=== PATIENT | female | born 1990 | race Caucasian/White ===

== ENCOUNTER 2018-11-23 20:51 | Inpatient (IN) | payer BC ==
[2018-11-23] MEDS ORDERED: CARBOPROST TROMETHAMINE 250 MCG/ML 1 ML AMP IM PRN (21:05)
[2018-11-23] MEDS ORDERED: OXYTOCIN 10 UNIT/ML 1 ML VIAL IM PRN (21:05)
[2018-11-23] MEDS ORDERED: LIDOCAINE 0.5% (PF) 5 MG/ML (50 ML SDV) SQ PRN (21:05)
[2018-11-23] MEDS ORDERED: METHYLERGONOVINE 0.2 MG/ML 1 ML AMP IM PRN (21:05)
[2018-11-23] MEDS ORDERED: TERBUTALINE 1 MG/ML VIAL SQ PRN (21:05)
[2018-11-23] MEDS ORDERED: OXYTOCIN 30 UNITS/500 ML NS 30 UNIT in SALINE 1 500ML.BAG IV SCH (21:15)
[2018-11-23 21:19] VITALS: BMI 51.3
[2018-11-23 21:22] LABS: Glucose,Whole Blood 91 mg/dL (75-99)
[2018-11-23 21:31] LABS: Basophils % (A) 0 %; Eosinophils # (A) 0.1 k/uL (0-0.7); Eosinophils % (A) 1 %; HCT 36.4 % (34.0-46.0); HGB 12.5 gm/dL (11.4-16.0); Lymphocytes # (A) 1.8 k/uL (1.0-4.8); Lymphocytes % (A) 19 %; MCH 29.9 pg (25.0-35.0); MCHC 34.3 g/dL (31.0-37.0); MCV 87.1 fL (80.0-100.0); Mean Platelet Volume 7.9; Monocytes # (A) 0.7 k/uL (0-1.0); Monocytes % (A) 8 %; Neutrophils # (A) 6.6 k/uL (1.3-7.7); Neutrophils % (A) 70 %; Platelet Count 280 k/uL (150-450); RBC 4.17 m/uL (3.80-5.40); RDW 15.6 % (11.5-15.5); WBC 9.5 k/uL (3.8-10.6)
[2018-11-24] MEDS: LACTATED RINGERS 1,000 ML IV SCH ×4 (00:43→12:00)
[2018-11-24] MEDS: BUTORPHANOL 1 MG/ML 1 ML VIAL IV PRN ×2 (04:23→06:34)
[2018-11-24] MEDS ORDERED: SODIUM CHLORIDE 0.9% 100 ML BAG ONE (08:01)
[2018-11-24] MEDS ORDERED: fentaNYL (PF) 50 MCG/ML 5 ML AMP ONE (08:01)
[2018-11-24] MEDS ORDERED: ROPIVACAINE 5MG/ML 20ML VIAL ONE (08:01)
[2018-11-24] MEDS ORDERED: ROPIVACAINE 100 MG, fentaNYL (PF) 200 MCG in SODIUM CHLORIDE 0.9% 76 ML EPIDURAL ONE (09:50)
[2018-11-24] MEDS ORDERED: AMPICILLIN 2,000 MG in SODIUM CHLORIDE 0.9% 100 ML IVPB STA (12:29)
--- NOTE | 2018-11-24 12:41 | P.HPOB ---
History of Present Illness H&P Date: 11/24/18 Chief Complaint: IUP @ 39 1/7 weeks, PROM This is a 28-year-old 010 at 39 and one sevenths weeks with an estimated due date of 11/29/2017 based on last menstrual period and consistent with 20 week ultrasound. Patient is a known patient of Dr. Love. Patient has been re ceiving routine care since the first trimester. She doesn't a history of migraine headaches for which she sees Dr. Rawls. In addition she has been diagnosed with gestational diabetes which has been diet controlled. Estimated weight on Sunday of last week was 91st percentile 8 lbs. 4 oz. She has had recently good control throughout the of her blood sugars. Patient states her water broke about 8 PM last evening, clear in nature. Patient noted good movement she denied contractions at that time no vaginal bleeding. On blood work she has a blood type of O+, rubella immune, RPR nonreactive, B surface antigen negative, HIV negative. She did pass her early 1 hour Glucola. She failed her second trimester gestational diabetes screen at the level of 183 and subsequently failed her 3 hour. She did receive her T Vaccine on 08/27/18. Group beta strep negative on 10/28/18. Review of Systems Constitutional: Denies chills, Denies fatigue, Denies fever Ears, nose, mouth and throat: Denies headache Cardiovascular: Reports leg edema Respiratory: Denies cough, Denies dyspnea Gastrointestinal: Denies constipation, Denies diarrhea, Denies nausea, Denies vomiting Genitourinary: Reports Past Medical History Past Medical History: No Reported History Additional Past Medical History / Comment(s): gestational diabetes 09/2018, migraine [place] History of Any Multi-Drug Resistant Organisms: None Reported Past Surgical History: Cholecystectomy Past Anesthesia/Blood Transfusion Reactions: No Reported Reaction Past Psychological History: No Psychological Hx Reported Smoking Status: Never smoker Past Alcohol Use History: None Reported Past Drug Use History: None Reported - Past Family History Mother Family Medical History: Diabetes Mellitus Father Family Medical History: Hyperlipidemia, Hypertension Medications and Allergies Home Medications Medication Instructions Recorded Confirmed Type Pnv No.95/Ferrous Fum/Folic AC 1 tab PO DAILY 09/24/18 11/23/18 History [ Multivitamin Tablet] Allergies Allergy/AdvReac Type Severity Reaction Status Date / Time acetaminophen [From Tylenol] AdvReac Unknown Verified 11/23/18 20:54 Exam Osteopathic Statement: *. No significant issues noted on an osteopathic structural exam other than those noted in the History and Physical/Consult. Vital Signs Temp Pulse Resp BP Pulse Ox 11/23/18 21:14 97.3 F L 108 H 16 112/67 97 11/23/18 20:55 97.5 F L 111 H 16 112/67 97 Intake and Output 11/23/18 11/24/18 11/24/18 22:59 06:59 14:59 Other: # Voids 2 2 Weight 131.587 kg Targeted physical exam is performed on this date in general this is a well- nourished well-developed obese female in no acute distress, her breathing is noted to nonlabored her heart has a regular rate and rhythm her abdomen is obese and gravid, there is +1 lower extremity edema noted, heart tones are noted to be category 1 she is yulissa irregularly contractions not graphing well given maternal size. On cervical exam she is 4/100/-2. Results Result Diagrams: 11/23/18 21:23 Abnormal Lab Results - Last 24 Hours (Table) 11/23/18 Range/Units 21:23 RDW 15.6 H (11.5-15.5) % Assessment and Plan (1) Term Current Visit: Yes Status: Acute Code(s): Z34.90 - ENCNTR FOR SUPRVSN OF NORMAL , UNSP, UNSP TRIMESTER SNOMED Code(s): 87675015 (2) GDM (gestational diabetes mellitus), class A1 Current Visit: Yes Status: Acute Code(s): O24.410 - GESTATIONAL DIABETES MELLITUS IN , DIET CONTROLLED SNOMED Code(s): 57513818 (3) Obesity Current Visit: Yes Status: Acute Code(s): E66.9 - OBESITY, UNSPECIFIED SNOMED Code(s): 140952011 (4) PROM (premature rupture of membranes) Current Visit: Yes Status: Acute Code(s): O42.90 - YOLIS ROM, 7TH0 BETW RUPT & ONST LABR, UNSP WEEKS OF GEST SNOMED Code(s): 95226046 Plan: Patient is admitted to labor and delivery for expectant management. Pitocin augmentation if she does not go into labor on her own was discussed. Epidu ral/Stadol are offered for analgesia throughout labor.
[2018-11-24] MEDS ORDERED: ceFAZolin 3 GM in SODIUM CHLORIDE 0.9% 100 ML IVPB ONE (13:52)
[2018-11-24] MEDS ORDERED: CITRIC ACID-SODIUM CITRATE 15 ML CUP PO ONE (13:52)
[2018-11-24] MEDS ORDERED: DEXAMETHASONE SOD PHOS (MDV) 100 MG/10 ML VIAL ONE (14:13)
[2018-11-24] MEDS ORDERED: LACTATED RINGERS 1,000 ML BAG IV ONE (14:13)
[2018-11-24] MEDS ORDERED: OXYTOCIN 10 UNIT/ML 1 ML VIAL ONE (14:13)
[2018-11-24] MEDS ORDERED: MORPHINE SULFATE (PF) 0.3 MG/0.3 ML SYR ONE (14:13)
[2018-11-24] MEDS ORDERED: ONDANSETRON 4 MG/2 ML VIAL ONE (14:13)
[2018-11-24] MEDS ORDERED: KETOROLAC 30 MG/ML 1 ML VIAL ONE (14:13)
[2018-11-24] MEDS ORDERED: fentaNYL (PF) 50 MCG/ML 2 ML AMP ONE (14:13)
--- NOTE | 2018-11-24 15:05 | P.OP ---
Date of Procedure: 11/24/18 Preoperative Diagnosis: IUP at 39 and 1/sevenths weeks premature rupture of membranes, arrest of first stage of labor Postoperative Diagnosis: Same Procedure(s) Performed: Primary low transverse section Anesthesia: epidural Surgeon: Nadine Gates Java Consultant #1: Joesph Bahena Estimated Blood Loss (ml): 500 IV fluids (ml): 700 Urine output (ml): 100 Pathology: none sent Condition: stable Disposition: PACU Indications for Procedure: This is a 28-year-old 2 para 0010 at 39 and one sevenths weeks that presented to labor and delivery last evening with complaints of rupture of membranes at 1930. Patient states the fluid was clear in nature. Patient was admitted to labor and delivery Pitocin augmentation of labor was begun around midnight this morning. Patient progressed to 4 cm and made no change afterwards. Patient was counseled on primary low transverse section secondary to arrest of first stage of labor patient agreed and was taken back to the operating suite for primary Operative Findings: Male infant in vertex presentation, weight 8 lbs. 6 oz. Apgars of 8 and 9 at one and 5 minutes respectively Normal uterus tubes and ovaries were appreciated. Description of Procedure: Patient was taken back to the operating suite where epidural anesthesia was found be adequate. She was prepped and draped in normal sterile fashion in the dorsal supine position. A Rosas catheter had been placed under sterile technique in the labor room. A Pfannenstiel skin incision was made with a scalpel and carried through the underlying layer of fascia. The fascia was then incised in the midline and the incision was extended laterally with the Jacobson scissors. The superior aspect of the fascial incision was then grasped Alberto clamps, elevated and underlying rectus muscles dissected off sharply. Attention was then turned the inferior aspect of the fascial incision which was grasped with Alberto clamps, elevated and underlying rectus muscles dissected off sharply once again. The peritoneum was identified and entered. The Adina abdominal retractor was then placed into the abdomen. The vesicouterine peritoneum was identified and the bladder flap was created using sharp and blunt dissection. The hysterotomy incision was then made clear fluid was obtained infant was delivered in an occiput transverse presentation without difficulty the cord was doubly clamped and cut and handed off to awaiting RN. Cord blood was then taken and the placenta was removed manually. The placenta was noted to be intact with a three-vessel cord. The uterus was then removed from the abdomen and cleared of all clots and debris. The hysterotomy incision was closed 0 Vicryl in a running locked fashion a second suture was used to obtain hemostasis. The uterus was then returned to the abdomen and hysterotomy site was inspected and hemostasis was appreciated. The retractor was removed without difficulty. At this time the fascia was closed with 0 Vicryl in a running locked fashion from one lateral edge the midline and the other lateral edge to the midline. The subcutaneous tissue was then irrigated hemostasis was appreciated in the subcu tissue was closed with 3-0 Vicryl in a running fashion. The skin was then closed with 4-0 Vicryl in a subcuticular fashion. Steri-Strips and sterile dressings were applied as needed. All counts are correct 2 patient tolerated procedure well and was taken to her room in stable condition.
[2018-11-24] MEDS ORDERED: OXYTOCIN 20 UNITS/1000 ML NS 1,000 ML IV SCH (15:17)
[2018-11-24] MEDS ORDERED: ONDANSETRON 4 MG/2 ML VIAL IVP PRN (15:17)
[2018-11-24] MEDS ORDERED: diphenhydrAMINE 25 MG CAP PO PRN (15:17)
[2018-11-24] MEDS ORDERED: LACTATED RINGERS 1,000 ML IV SCH (15:17)
[2018-11-24] MEDS ORDERED: diphenhydrAMINE 50 MG/ML 1 ML VIAL IVP PRN ×2 (15:17)
[2018-11-24] MEDS ORDERED: METOCLOPRAMIDE 5 MG/ML 2 ML VIAL IVP PRN (15:17)
[2018-11-24] MEDS ORDERED: diphenhydrAMINE 50 MG CAP PO PRN (15:17)
[2018-11-24] MEDS ORDERED: ZOLPIDEM 5 MG TAB PO PRN (15:17)
[2018-11-24] MEDS ORDERED: NALOXONE 0.4 MG/ML 1 ML VIAL IV PRN (15:17)
[2018-11-24] MEDS: IBUPROFEN IV 800 MG in SODIUM CHLORIDE 0.9% 250 ML IV SCH ×2 (16:28→22:56)
[2018-11-24] MEDS ORDERED: AMPICILLIN 1,000 MG in SODIUM CHLORIDE 0.9% 50 ML IVPB SCH (16:30)
[2018-11-25] MEDS: IBUPROFEN IV 800 MG in SODIUM CHLORIDE 0.9% 250 ML IV SCH ×2 (04:33→10:23)
[2018-11-25] MEDS: LACTATED RINGERS 1,000 ML IV SCH (04:34)
[2018-11-25 06:36] LABS: Basophils % (A) 0 %; Eosinophils % (A) 0 %; HCT 29.9 % (34.0-46.0); Lymphocytes % (A) 17 %; MCH 29.6 pg (25.0-35.0); MCHC 33.5 g/dL (31.0-37.0); MCV 88.5 fL (80.0-100.0); Mean Platelet Volume 9.4; Monocytes # (A) 0.8 k/uL (0-1.0); Monocytes % (A) 6 %; Neutrophils % (A) 75 %; Platelet Count 205 k/uL (150-450); RBC 3.37 m/uL (3.80-5.40); RDW 14.6 % (11.5-15.5)
[2018-11-25] MEDS ORDERED: PRENATAL VIT-IRON-FOLIC ACID 1 EACH CAP PO SCH (09:00)
--- NOTE | 2018-11-25 14:41 | P.PNOBGPC ---
Subjective - Subjective Principal diagnosis: POD 1 LTCS arrest of first stage of labor Interval history: Patient has done well overnight. She is ambulating and voiding without difficulty. She is using ibuprofen for discomfort. She does has a sensitivity to Tylenol. Patient is breast-feeding without difficulty. She is tolerating a regular diet without nausea or vomiting. She states her lochia is minimal. Patient reports: Reports appetite normal, Reports voiding normally, Reports pain well controlled, Reports ambulating normally Brothers: doing well, nursing well Objective - Vital Signs Latest vital signs: Vital Signs Temp Pulse Resp BP Pulse Ox 11/25/18 12:00 98.1 F 92 16 99/55 96 11/25/18 07:34 98.4 F 92 16 114/46 97 11/25/18 03:59 98.3 F 92 16 116/59 99 11/24/18 23:33 98.5 F 74 16 116/56 11/24/18 20:00 98.2 F 68 16 99/59 11/24/18 17:04 97.7 F 87 16 111/69 96 11/24/18 16:34 122 H 16 114/58 95 11/24/18 16:04 83 16 107/56 96 11/24/18 15:49 90 16 106/56 95 11/24/18 15:34 89 16 112/53 96 11/24/18 15:19 112 H 16 121/60 96 11/24/18 15:04 98.5 F 100 16 129/64 96 Intake and Output 11/24/18 11/25/18 11/25/18 22:59 06:59 14:59 Intake Total 550 Output Total 1125 1000 900 Balance -1125 -450 -900 Intake: Oral 550 Output: Urine 1125 1000 900 Uretheral (Rosas) 275 Other: # Voids 1 - Exam Extremities: Present: edema Abdomen: Present: normal appearance, soft Incision: Present: normal, dry, intact Uterus: Present: normal, firm - Labs Labs: Abnormal Lab Results - Last 24 Hours (Table) 11/25/18 Range/Units 06:24 WBC 12.0 H (3.8-10.6) k/uL RBC 3.37 L (3.80-5.40) m/uL Hgb 10.0 L D (11.4-16.0) gm/dL Hct 29.9 L (34.0-46.0) % Neutrophils # 9.0 H (1.3-7.7) k/uL Assessment and Plan (1) Term Current Visit: Yes Status: Acute Code(s): Z34.90 - ENCNTR FOR SUPRVSN OF NORMAL , UNSP, UNSP TRIMESTER SNOMED Code(s): 23084892 (2) GDM (gestational diabetes mellitus), class A1 Current Visit: Yes Status: Acute Code(s): O24.410 - GESTATIONAL DIABETES MELLITUS IN , DIET CONTROLLED SNOMED Code(s): 09801255 (3) Obesity Current Visit: Yes Status: Acute Code(s): E66.9 - OBESITY, UNSPECIFIED SNOMED Code(s): 980970357 (4) PROM (premature rupture of membranes) Current Visit: Yes Status: Acute Code(s): O42.90 - YOLIS ROM, 7TH0 BETW RUPT & ONST LABR, UNSP WEEKS OF GEST SNOMED Code(s): 16002026 (5) S/P section Current Visit: Yes Status: Acute Code(s): Z98.891 - HISTORY OF UTERINE SCAR FROM PREVIOUS SURGERY SNOMED Code(s): 976455680 Plan: Patient is doing well postoperatively, will plan to continue routine postoperative care. Anticipate discharge home tomorrow.
[2018-11-25] MEDS: IBUPROFEN 600 MG TAB PO PRN ×2 (16:22→23:18)
[2018-11-25] MEDS: HYDROcodone/APAP 5-325MG 1 EACH TAB PO PRN (19:45)
[2018-11-25] MEDS: SENNOSIDES-DOCUSATE SODIUM 1 EACH TAB PO SCH (19:46)
[2018-11-26] VITALS: RESP 16
[2018-11-26] MEDS: HYDROcodone/APAP 5-325MG 1 EACH TAB PO PRN ×2 (02:56→09:15)
[2018-11-26] MEDS: IBUPROFEN 600 MG TAB PO PRN ×2 (06:21→13:36)
--- NOTE | 2018-11-26 07:26 | P.DS ---
Providers Date of admission: 11/23/18 21:06 Expected date of discharge: 11/26/18 Attending physician: Maribel Love Primary care physician: Stated None Hospital Course: This is a 28-year-old 2 para 0010 EDC 11/29/2018 at 39 and one sevenths weeks' gestation. Patient presented with spontaneous amniorrhexis which occurred at home, clear fluid. Oxytocin augmentation was started, and she progressed through labor to 4 cm dilatation. No further dilatation or descent was noted, and the decision was made to proceed with primary low transverse section. Patient's is remarkable for blood type O positive, rubella status immune, group B strep cultures negative. She has gestational diabetes that has been diet controlled. She also has morbid obesity. Please see dictated history and physical for details. She underwent a low-transverse section and gave to a liveborn male with scores of 8 and 9 at one and 5 minutes respectively. He weighed 3810 g or 8 lbs. 6 oz. Surgery was basically unremarkable, please see dictated operative note for details. This morning the patient is doing well. She is voiding, ambulating, passing flatus without difficulty. Vital signs are stable and she is afebrile. Fundus is firm and in the midline, symmetric, 18 week size, nontender. Lochia rubra is minimal to moderate. Extremities reveal trace edema. She has remained afebrile and feels as if she is ready to be discharged home. She is in good condition for discharge home. Circumcision has been performed at this time. Patient is reminded no intercourse, tampons or douching. She will use ove g-sli-[id number] Advil, Motrin, or Aleve as needed for pain. We will check a 2 hour GTT at the 6 week visit. She will follow-up with me in 2 weeks for incision check. I reviewed with her proper incisional care. I also reminded her that this would be an excellent time for weight loss, as it will keep her healthy are as life progresses. [place] circumcision is being performed at this time. Call with any fevers shakes or chills, foul smelling or copious lochia, with the passage of large blood clots, with any pain not alleviated by rrva-[id number]-[id number] products, or indeed with any concerns. I reminded her to consider her options for contraception and we will discuss this further in the office. Patient Condition at Discharge: Good Plan - Discharge Summary Discharge Rx Participant: No New Discharge Prescriptions: No Action Pnv No.95/Ferrous Fum/Folic AC [ Multivitamin Tablet] 1 tab PO DAILY Discharge Medication List Pnv No.95/Ferrous Fum/Folic AC [ Multivitamin Tablet] 1 tab PO DAILY 09/24/18 [History] Follow up Appointment(s)/Referral(s): Maribel Love MD [STAFF PHYSICIAN] - 2 Weeks Discharge Disposition: HOME SELF-CARE
[2018-11-26] MEDS: SENNOSIDES-DOCUSATE SODIUM 1 EACH TAB PO SCH (09:15)
[2018-11-26 10:09] LABS: Hemoglobin A1C 5.6 % (4.0-6.0)
[2018-11-26 15:50] VITALS: BP 108/67; PULSE 79; TEMP 98.9
== END 2018-11-26 18:00 | disposition home or self-care (01) | DRG 787 ==
LOC: FBPOP 20:51 → 4FBP 21:06
PROVIDERS: ADMIT Obstetrics & Gynecology Obstetrics; ATTEND Obstetrics & Gynecology
PROC: 00HU33Z Insertion of Infusion Device into Spinal Canal, Percutaneous Approach (ICD-10-PCS; 2018-11-24)
PROC: 3E0R3BZ Introduction of Anesthetic Agent into Spinal Canal, Percutaneous Approach (ICD-10-PCS; 2018-11-24)
PROC: 10D00Z1 Extraction of Products of Conception, Low, Open Approach (ICD-10-PCS; principal; 2018-11-24 14:25)
DX: O42.02 Full-term premature rupture of membranes, onset of labor within 24 hours of rupture (principal); O99.354 Diseases of the nervous system complicating childbirth; O62.1 Secondary uterine inertia; O24.420 Gestational diabetes mellitus in childbirth, diet controlled; O99.214 Obesity complicating childbirth; E66.01 Morbid (severe) obesity due to excess calories; G43.909 Migraine, unspecified, not intractable, without status migrainosus; Z3A.39 39 weeks gestation of pregnancy; Z37.0 Single live birth; Z79.899 Other long term (current) drug therapy; Z90.49 Acquired absence of other specified parts of digestive tract; Z88.6 Allergy status to analgesic agent; Z83.3 Family history of diabetes mellitus; Z83.49 Family history of other endocrine, nutritional and metabolic diseases; Z82.49 Family history of ischemic heart disease and other diseases of the circulatory system
CPT/HCPCS: 59025; 83036; 85025; 86850; 86900; 86901; 99213

== ENCOUNTER 2022-12-01 15:11 | Outpatient (CLI) | payer BC, OTHER ==
[2022-12-01] MEDS ORDERED: LOPERAMIDE 2 MG CAP PO PRN (15:55)
[2022-12-01] MEDS ORDERED: LACTATED RINGERS 1,000 ML IV SCH (16:00)
[2022-12-01 17:41] VITALS: BP 128/78; PULSE 103; RESP 16; TEMP 97.4
--- NOTE | 2022-12-06 18:02 | P.MSEPDOC ---
Presenting Problems - Arrival Data Date of Arrival on Unit: 12/01/22 Time of Arrival on Unit: 15:11 Mode of Transport: Ambulatory - Complaint OB-Reason for Admission/Chief Complaint: Pain Comment: Pt c/o abdominal cramping and sharp left sided abdominal pain rating 1/10 constantly and 4/10 when moving. Medical History - Information : 3 Para: 1 Term: 1 : 0 Abortions: Spontaneous or Elective: 1 Number of Living Children: 1 - Gestational Age Gestational Age by ADRIANA (wks/days): 34 Weeks and 6 Days - History Complications: Other Comment: Type II diabetes Review of Systems - Review of Systems Constitutional: No problems Breast: No problems ENT: No problems Cardiovascular: No problems Respiratory: No problems Gastrointestinal: No problems Genitourinary: No problems Musculoskeletal: No problems Neurological: No problems Skin: No problems Vital Signs - Temperature Temperature: 97.4 F Temperature Source: Temporal Artery Scan - Pulse Pulse Oximetery Pulse Rate: 103 Pulse Assessment Method: Pulse Oximetry - Respirations Respiratory Rate: 16 Oxygen Delivery Method: Room Air O2 Sat by Pulse Oximetry: 98 - Blood Pressure Right Arm Blood Pressure: 128/78 Blood Pressure Mean: 94 Blood Pressure Source: Automatic Cuff Medical Screen Scoring - Assessment - Baby A Baseline FHR: 130 Heart Rate - NICHD Category: Category I (Normal) NST: Reactive Physician Notification - Physician Notified Physician Notified Date: 12/01/22 Physician Notified Time: 15:55 Physician: Yamilet Rubio Order Received: Yes - Notification Comment Comment: Spoke with Dr. Rubio. Pt is 34 weeks and 6 days. Has had diarrhea. Spoke with Dr. Rubio. Pt is 34 weeks and 6 days. Has had diarrhea for two days, abdominal cramping since 0330 this AM, and sharp pain on left side of. abdomen. says pain and cramping is constantly 1/10 but rates 4/10 when moving. Vitals. WNL, no fever. Abdomen is soft. Pt states she does not feel like the pain is cx pain. Reactive NST. Orders recieved for one time dose of imodium and IV fluid bolus. If. interventions help, pt can be d/c Maternal Triage Index - Maternal Triage Index Presenting for scheduled procedure w/no complaint: No - Stat/Priority 1 Stat Priority 1: No - Urgent/Priority 2 Urgent Priority 2: No - Prompt/Priority 3 Prompt Priority 3: No - Non-Urgent/Priority 4 Non-Urgent Priority 4: Yes Criteria Met for Priority 4: Pt has been having abdominal cramping and left sided sharp pain since this morning 0330. States she has had diarrhea for the past two days. Pt c/o cramping during the whole but states the cramping has never been this bad and woke her up in the middle of the night. rates pain 4/10 when moving, 1/10 constantly otherwise Disposition - Disposition OB Disposition: Triage, Discharge to home, Written follow up instructions reviewed Discharge Date: 12/01/22 Discharge Time: 17:25 I agree with the RN Medical Screening Exam: Yes Physician's MSE Comment: I have neither seen nor examined the patient Case reviewed; plan agreed upon as documented in EMR&OBIX.: Yes Diagnosis: RELATED CONDITIONS, UNSPECIFIED, THIRD TRIMESTER
== END 2022-12-01 17:25 | disposition home or self-care (01) ==
LOC: FBPOP 15:11
PROVIDERS: ATTEND Obstetrics & Gynecology Obstetrics
DX: O26.893 Other specified pregnancy related conditions, third trimester (principal); O24.113 Pre-existing type 2 diabetes mellitus, in pregnancy, third trimester; E11.9 Type 2 diabetes mellitus without complications; R10.9 Unspecified abdominal pain; Z3A.34 34 weeks gestation of pregnancy; Z88.6 Allergy status to analgesic agent; Z79.84 Long term (current) use of oral hypoglycemic drugs
CPT/HCPCS: 59025; 96360; 96361; 99214

== ENCOUNTER 2022-12-19 11:43 | Outpatient (CLI) | payer BC, OTHER ==
[2022-12-19 12:01] LABS: Appearance,Urine Clear (Clear); Bilirubin,Urine Negative (Negative); Blood,Urine Negative (Negative); Color,Urine Light Yellow; Glucose,Urine (UA) Negative (Negative); Ketones,Urine Negative (Negative); Leukocyte Esterase,Urine Moderate (Negative); Mucus,Urine Rare /hpf; Nitrite,Urine Negative (Negative); PH, Urine 7.5 (5.0-8.0); Protein,Urine Negative (Negative); Specific Gravity,Urine 1.014 (1.001-1.035); Squamous Epithelial Cell,Urine 2 /hpf (0-4); Urobilinogen,Urine <2.0 mg/dL (<2.0); WBC,Urine 6 /hpf (0-5)
[2022-12-19 12:19] LABS: Creatinine,Urine Random 94.2 mg/dL; Protein/Creatinine Ratio,Urine 0.064
[2022-12-19 12:46] LABS: Basophils % (A) 0 %; Eosinophils % (A) 0 %; HCT 34.6 % (34.0-46.0); HGB 11.5 gm/dL (11.4-16.0); Lymphocytes # (A) 1.8 k/uL (1.0-4.8); Lymphocytes % (A) 30 %; MCH 29.7 pg (25.0-35.0); MCHC 33.4 g/dL (31.0-37.0); Mean Platelet Volume 9.3; Monocytes # (A) 0.4 k/uL (0-1.0); Monocytes % (A) 7 %; Neutrophils # (A) 3.7 k/uL (1.3-7.7); Neutrophils % (A) 61 %; Platelet Count 204 k/uL (150-450); RBC 3.88 m/uL (3.80-5.40)
[2022-12-19 13:41] VITALS: BP 137/72; PULSE 75; RESP 18; TEMP 97.2
== END 2022-12-19 13:35 | disposition home or self-care (01) ==
LOC: FBPOP 11:43
PROVIDERS: ATTEND Obstetrics & Gynecology Obstetrics
DX: O24.415 Gestational diabetes mellitus in pregnancy, controlled by oral hypoglycemic drugs (principal); Z3A.37 37 weeks gestation of pregnancy; Z79.84 Long term (current) use of oral hypoglycemic drugs; Z88.8 Allergy status to other drugs, medicaments and biological substances
CPT/HCPCS: 59025; 81001; 82570; 84156; 84450; 84460; 84550; 85025

== ENCOUNTER 2022-12-25 09:06 | Inpatient (IN) | payer BC, OTHER ==
[2022-12-21 10:04] VITALS: BMI 52.9
[2022-12-25] MEDS ORDERED: ceFAZolin 3 GM in SODIUM CHLORIDE 0.9% 100 ML IVPB ONE (10:57)
[2022-12-25] MEDS ORDERED: CARBOPROST TROMETHAMINE 250 MCG/ML 1 ML AMP IM PRN (10:57)
[2022-12-25] MEDS ORDERED: miSOPROStoL 200 MCG TAB PO PRN (10:57)
[2022-12-25] MEDS ORDERED: TRANEXAMIC 1,000 MG/100ML-NACL 1,000 MG in EMPTY BAG 1 BAG IV PRN (10:57)
[2022-12-25] MEDS ORDERED: OXYTOCIN 10 UNIT/ML 1 ML VIAL IM PRN (10:57)
[2022-12-25] MEDS ORDERED: METHYLERGONOVINE 0.2 MG/ML 1 ML AMP IM PRN (10:57)
[2022-12-25] MEDS ORDERED: CITRIC ACID-SODIUM CITRATE 15 ML CUP PO ONE (10:57)
[2022-12-25 10:58] LABS: Glucose,Whole Blood 79 mg/dL (70-110)
[2022-12-25] MEDS ORDERED: OXYTOCIN 30 UNITS/500 ML NS 30 UNIT in SALINE 1 500ML.BAG IV SCH (11:00)
[2022-12-25] MEDS ORDERED: LACTATED RINGERS 1,000 ML IV SCH (11:00)
[2022-12-25 11:29] LABS: Basophils % (A) 0 %; Eosinophils % (A) 1 %; HCT 33.7 % (34.0-46.0); HGB 11.3 gm/dL (11.4-16.0); Lymphocytes # (A) 1.6 k/uL (1.0-4.8); Lymphocytes % (A) 26 %; MCH 29.8 pg (25.0-35.0); MCHC 33.6 g/dL (31.0-37.0); MCV 88.7 fL (80.0-100.0); Mean Platelet Volume 10.1; Monocytes # (A) 0.4 k/uL (0-1.0); Monocytes % (A) 6 %; Neutrophils # (A) 4.3 k/uL (1.3-7.7); Neutrophils % (A) 66 %; Platelet Count 202 k/uL (150-450); RDW 13.9 % (11.5-15.5); WBC 6.4 k/uL (3.8-10.6)
[2022-12-25] MEDS ORDERED: ONDANSETRON 4 MG/2 ML VIAL ONE (12:11)
[2022-12-25] MEDS ORDERED: MORPHINE SULFATE (PF) 0.3 MG/0.3 ML SYR ONE (12:11)
[2022-12-25] MEDS ORDERED: OXYTOCIN 30 UNITS/500 ML NS BAG IV ONE (12:11)
--- NOTE | 2022-12-25 13:06 | P.HPOB ---
History of Present Illness H&P Date: 12/25/22 Chief Complaint: IUP at 38-2/7 weeks, gestational diabetes, morbid obesity, h/o c/s x 1 32-year-old 011 at 38-2/7 weeks that presents to labor and delivery for scheduled repeat section with bilateral salpingectomy. Patient has been receiving routine care which has been complicated by diagnosis of pre-existing diabetes. Patient has on 2000 mg of metformin daily. Patient did see maternal medicine given her elevated fasting glucose levels they recommended oral Glucophage. She was taking previously prior to and they increased the dose to 2000 mg. Patient has underwent testing which has been normal, on bloodwork this patient is a blood type of O+, rubella status immune, hepatitis B surface antigen negative, HIV negative, RPR is nonreactive, group beta strep cultures are negative. Today patient notes good movement denies contractions vaginal bleeding or loss of fluid Review of Systems Constitutional: Denies chills, Denies fatigue, Denies fever Ears, nose, mouth and throat: Denies headache Cardiovascular: Reports leg edema Respiratory: Denies dyspnea Gastrointestinal: Denies constipation, Denies diarrhea, Denies nausea, Denies vomiting Genitourinary: Reports Past Medical History Past Medical History: Diabetes Mellitus, GERD/Reflux Additional Past Medical History / Comment(s): Type 2 Diabetes, hx Gestational Diabetes, Migraines. History of Any Multi-Drug Resistant Organisms: None Reported Past Surgical History: Section, Cholecystectomy Past Anesthesia/Blood Transfusion Reactions: No Reported Reaction, Motion Sickness Past Psychological History: No Psychological Hx Reported Smoking Status: Never smoker Past Alcohol Use History: None Reported Past Drug Use History: None Reported - Past Family History Mother Family Medical History: Diabetes Mellitus Father Family Medical History: Hyperlipidemia, Hypertension Medications and Allergies Home Medications Medication Instructions Recorded Confirmed Type Pnv No.95/Ferrous Fum/Folic AC 1 tab PO DAILY 09/24/18 12/25/22 History [ Multivitamin Tablet] Aspirin [Adult Low Dose Aspirin EC] 81 mg PO DAILY 12/01/22 12/25/22 History metFORMIN HCL 1,000 mg PO BID 12/01/22 12/25/22 History Allergies Allergy/AdvReac Type Severity Reaction Status Date / Time acetaminophen [From Tylenol] AdvReac Migraines Verified 12/25/22 10:33 Exam Osteopathic Statement: *. No significant issues noted on an osteopathic structural exam other than those noted in the History and Physical/Consult. Vital Signs Temp Pulse Resp BP Pulse Ox 12/25/22 10:34 98.4 F 75 16 133/76 98 Intake and Output 12/24/22 12/25/22 12/25/22 22:59 06:59 14:59 Other: Weight 135.624 kg Targeted physical exam is performed in [facility] a well-nourished well- developed female in no acute distress, breathing is nonlabored, heart has regular rhythm, abdomen is obese and gravid, heart tones are be category 1 and she is yulissa irregularly. Cervical exam is deferred. Results Result Diagrams: 12/25/22 10:59 Abnormal Lab Results - Last 24 Hours (Table) 12/25/22 Range/Units 10:59 Hgb 11.3 L (11.4-16.0) gm/dL Hct 33.7 L (34.0-46.0) % Assessment and Plan (1) Diabetes in Current Visit: Yes Status: Acute Code(s): O24.919 - UNSP DIABETES MELLITUS IN , UNSPECIFIED TRIMESTER SNOMED Code(s): 025173488 (2) Term Current Visit: No Status: Acute Code(s): Z34.90 - ENCNTR FOR SUPRVSN OF NORMAL , UNSP, UNSP TRIMESTER SNOMED Code(s): 24762613 Plan: 32-year-old at 38-2/7 weeks presents for repeat section with bilateral salpingectomy. Patient has been receiving routine care complicated by uncontrolled diabetes. Patient was seen by maternal medicine who recommended continued metformin and treatment. Metformin 2000 mg daily with moderate control of blood sugars. Patient states she is done with childbearing and elects bilateral salpingectomy. Patient is counseled on repeat section with bilateral salpingectomy. All questions are answered and patient states understanding. We'll proceed with repeat section with bilateral salpingectomy.
[2022-12-25] MEDS ORDERED: METOCLOPRAMIDE 5 MG/ML 2 ML VIAL IVP PRN (13:10)
[2022-12-25] MEDS ORDERED: diphenhydrAMINE 25 MG CAP PO PRN (13:10)
[2022-12-25] MEDS ORDERED: SIMETHICONE 80 MG CHEWABLE PO PRN (13:10)
[2022-12-25] MEDS ORDERED: ONDANSETRON 4 MG/2 ML VIAL IVP PRN (13:10)
[2022-12-25] MEDS ORDERED: diphenhydrAMINE 50 MG CAP PO PRN (13:10)
[2022-12-25] MEDS ORDERED: diphenhydrAMINE 50 MG/ML 1 ML VIAL IVP PRN (13:10)
[2022-12-25] MEDS ORDERED: NALOXONE 0.4 MG/ML 1 ML VIAL IV PRN (13:10)
[2022-12-25] MEDS ORDERED: ZOLPIDEM 5 MG TAB PO PRN (13:10)
--- NOTE | 2022-12-25 13:10 | P.OP ---
Date of Procedure: 12/25/22 Preoperative Diagnosis: IUP at 38-3/7 weeks, diabetes poorly controlled with oral metformin, history of 1 desires repeat, family planning complete, morbid obesity Postoperative Diagnosis: Same Procedure(s) Performed: Repeat section with bilateral salpingectomy Anesthesia: spinal Surgeon: Nadine Gates [employer] Unit Advisor #1: Danyell Foley Estimated Blood Loss (ml): 500 IV fluids (ml): 1,000 Urine output (ml): 100 (Clear yellow) Pathology: other (Placenta bilateral fallopian tubes) Condition: stable Disposition: observation Indications for Procedure: Patient request for repeat section given her prior . Patient states she is done with childbearing and desires permanent sterilization with bilateral salpingectomy. Operative Findings: Normal uterus tubes and ovaries were appreciated. Viable female infant delivered at 1233, weight of 8 lbs. 12 oz., Apgars of 9 and 9 at one and 5 minutes respectively. Description of Procedure: The patient was prepped and draped in the usual fashion after spinal anesthesia was administered by the anesthesia department. A Pfannenstiel incision was made and extended of the abdominal cavity without difficulty. The bladder peritoneum was elevated and incised and reflected distally. An Ezio abdominal retractor was then placed into the abdomen, the vesicouterine peritoneum was identified and a bladder flap was created using sharp and blunt dissection. The bladder blade was then inserted and the pelvis. A 2 cm incision was made in the transverse plane of the lower uterine segment to enter the uterus at which time clear fluid was noted. The incision was extended in both directions bluntly. Copious clear fluid was obtained, the head was encountered within the field and delivered up and through the incision where the nose and mouth were thoroughly suctioned. Remainder of the was delivered onto the surgical field where the cord was doubly clamped, cut, and the was passed for resuscitative measures with weight and Apgars as noted above. The placenta was delivered manually, intact, and was grossly normal with a grossly normal three- vessel cord. The uterus was exteriorized and the interior cavity of the uterus swept of any remaining placental and membranous fragments with a laparotomy sponge. The margins of the incision were grasped with Allis clamps, the uterine incision was closed with 0 Vicryl in a running locked fashion.. Bleeding was noted on the midportion of the uterine incision therefore a [id number] suture was used to obtain hemostasis. The right fallopian tube was then elevated and the LigaSure was opened and mesosalpinx was cauterized and transected the fallopian tube was then passed off the operating field, this was then repeated on the opposite side. Good hemostasis was appreciated after removal of both fallopian tubes. Any small points of bleeding were then made hemostatic with the Bovie. Once hemostasis was achieved, the posterior cul-de-sac was suctioned with a guard and the uterine and ovarian findings are as noted above. The uterus was replaced within the abdominal cavity and the gu tters swept of any remaining blood fluid or clot. The incision was again reexamined and hemostasis was noted to be excellent. Any small point of bleeding were made hemostatic with the Bovie. Once hemostasis was achieved the parietal peritoneum was loosely reapproximated. The layer of muscles were examined and made hemostatic with the Bovie. Attention was then turned to the fascia which was closed with 2 running stitches of 0 Vicryl proceeding from the lateral margins to the midpoint. The subcutaneous tissues were irrigated, made hemostatic with the Bovie, and reapproximated with a running stitch of 30 Vicryl. The skin was reapproximated with 4-0 Vicryl. Estimated blood loss for the case was approximately 500 mL. All sponge instrument and needle counts are correct. There were no complications. The patient tolerated the procedure well and proceeded to the recovery room in stable condition. Both mother and infant are resting comfortably in recovery.
[2022-12-25] MEDS: IBUPROFEN IV 800 MG in SODIUM CHLORIDE 0.9% 250 ML IV PRN (17:00)
[2022-12-25] MEDS: diphenhydrAMINE 50 MG/ML 1 ML VIAL IVP PRN (17:07)
[2022-12-25] MEDS: LACTATED RINGERS 1,000 ML IV SCH (17:56)
[2022-12-25] MEDS: IBUPROFEN 600 MG TAB PO SCH (20:40)
[2022-12-25] MEDS: SENNOSIDES-DOCUSATE SODIUM 1 EACH TAB PO SCH (20:48)
[2022-12-26] MEDS: diphenhydrAMINE 50 MG/ML 1 ML VIAL IVP PRN (00:30)
[2022-12-26] MEDS: IBUPROFEN IV 800 MG in SODIUM CHLORIDE 0.9% 250 ML IV PRN (00:30)
[2022-12-26] MEDS: IBUPROFEN 600 MG TAB PO SCH ×4 (01:34→18:18)
[2022-12-26] MEDS: LACTATED RINGERS 1,000 ML IV SCH ×2 (02:00→06:25)
--- NOTE | 2022-12-26 07:09 | P.PN ---
Progress Note - Text Date: 12/26/2022 Time: 06:58 The patient is status post section Vital signs stable VAS: 0-10 Patient has no complaints of pain. The patient incurred some minimal itching yesterday, this itching is now subsiding. Pain meds to be managed by service.
[2022-12-26 07:22] LABS: Basophils % (A) 0 %; Eosinophils % (A) 0 %; HCT 31.3 % (34.0-46.0); HGB 10.5 gm/dL (11.4-16.0); Lymphocytes # (A) 1.4 k/uL (1.0-4.8); Lymphocytes % (A) 18 %; MCH 29.7 pg (25.0-35.0); MCHC 33.5 g/dL (31.0-37.0); MCV 88.6 fL (80.0-100.0); Mean Platelet Volume 10.1; Monocytes # (A) 0.5 k/uL (0-1.0); Monocytes % (A) 7 %; Neutrophils # (A) 5.7 k/uL (1.3-7.7); Neutrophils % (A) 74 %; Platelet Count 184 k/uL (150-450); RBC 3.54 m/uL (3.80-5.40); RDW 13.8 % (11.5-15.5); WBC 7.7 k/uL (3.8-10.6)
[2022-12-26] MEDS: PRENATAL VIT-IRON-FOLIC ACID 1 EACH TABLET PO SCH (08:59)
[2022-12-26] MEDS: SENNOSIDES-DOCUSATE SODIUM 1 EACH TAB PO SCH ×2 (08:59→23:23)
--- NOTE | 2022-12-26 13:05 | P.PNOBGPC ---
Subjective - Subjective Principal diagnosis: Postop day 1, repeat with bilateral salpingectomy Interval history: Patient is doing well. She is ambulating and voiding without difficulty. She states her pain is well-controlled. She notes minimal lochia. She is bottle feeding. Patient reports: Reports appetite normal, Reports voiding normally, Reports pain well controlled, Reports ambulating normally [place]: doing well, bottle feeding Objective - Vital Signs Latest vital signs: Vital Signs Temp Pulse Resp BP Pulse Ox 12/26/22 12:00 98.9 F 82 16 141/83 99 12/26/22 08:00 98.3 F 86 18 119/75 96 12/26/22 03:45 98.3 F 86 16 126/61 97 12/26/22 00:00 98.5 F 75 16 119/71 97 12/25/22 20:30 98.1 F 95 16 132/70 98 12/25/22 15:15 98.1 F 62 17 110/59 97 12/25/22 14:43 75 16 121/59 12/25/22 14:13 57 L 17 114/58 94 L 12/25/22 13:54 70 16 107/54 94 L 12/25/22 13:43 71 16 113/56 95 12/25/22 13:28 80 15 117/59 95 12/25/22 13:13 97.2 F L 70 16 124/61 98 Intake and Output 12/25/22 12/26/22 12/26/22 22:59 06:59 14:59 Output Total 068 727 1115 Balance -550 -500 -1250 Output: Urine 423 559 0219 Straight 500 Uretheral (Rosas) 100 Output, Quantitative 150 Blood Loss Other: # Voids 1 # Bowel Movements 1 - Exam Extremities: Present: normal, edema Abdomen: Present: normal appearance, soft Incision: Present: normal, dry, intact Uterus: Present: normal, firm - Labs Labs: Abnormal Lab Results - Last 24 Hours (Table) 12/26/22 Range/Units 07:07 RBC 3.54 L (3.80-5.40) m/uL Hgb 10.5 L (11.4-16.0) gm/dL Hct 31.3 L (34.0-46.0) % Assessment and Plan (1) Diabetes in Current Visit: Yes Status: Acute Code(s): O24.919 - UNSP DIABETES MELLITUS IN , UNSPECIFIED TRIMESTER SNOMED Code(s): 501843825 (2) Term Current Visit: No Status: Acute Code(s): Z34.90 - SNOMED Code(s): 55740771 (3) S/P section Current Visit: No Status: Acute Code(s): Z98.891 - SNOMED Code(s): 630302170 Plan: Patient is doing well postoperatively. We will continue routine postoperative care, anticipate discharge home tomorrow.
[2022-12-27] MEDS: IBUPROFEN 600 MG TAB PO SCH ×2 (00:18→05:49)
[2022-12-27] MEDS: SENNOSIDES-DOCUSATE SODIUM 1 EACH TAB PO SCH (09:24)
[2022-12-27 09:34] VITALS: BP 138/82; PULSE 88; RESP 14; TEMP 98.6
[2022-12-27] MEDS: PRENATAL VIT-IRON-FOLIC ACID 1 EACH TABLET PO SCH (10:36)
--- NOTE | 2022-12-27 12:55 | P.DS ---
Providers Date of admission: 12/25/22 09:55 Expected date of discharge: 12/27/22 Attending physician: Nadine Gates Primary care physician: Trino Griffiths - Discharge Diagnosis(es) (1) Diabetes in Current Visit: Yes Status: Acute (2) Term Current Visit: No Status: Acute (3) S/P section With bilateral salpingectomy Current Visit: No Status: Acute Hospital Course: 32-year-old 3 now para 2011 that presented to labor and delivery on 12/25 for scheduled repeat section with bilateral salpingectomy. Patient receiving routine care with myself which is been contacted by diagnosis of pre-existing diabetes. Patient did see maternal medicine and her metformin was increased to 2000 mg daily. Patient did reasonably well with her blood sugars. Patient underwent testing given diagnosis of gestational diabetes on metformin. For full details on this patient please the dictated history and physical. Patient was admitted and repeat section with bilateral salpingectomy was completed without difficulty. For full details on the procedure please see the operative report. Patient delivered a viable female infant, weight of 8 lbs. 12 oz., Apgars of 9 and 9 at one and 5 minutes respectively. Patient's postoperative course has been uneventful. On this postoperative day #2 she is ambulating and voiding without difficulty. She is tolerating a regular diet without nausea or vomiting. She states her pain is well-controlled. She denies concerns and would like discharge home. Patient Condition at Discharge: Good Plan - Discharge Summary Discharge Rx Participant: Yes New Discharge Prescriptions: No Action Pnv No.95/Ferrous Fum/Folic AC [ Multivitamin Tablet] 1 tab PO DAILY metFORMIN HCL 1,000 mg PO BID Aspirin [Adult Low Dose Aspirin EC] 81 mg PO DAILY Discharge Medication List Pnv No.95/Ferrous Fum/Folic AC [ Multivitamin Tablet] 1 tab PO DAILY 09/24/18 [History] Aspirin [Adult Low Dose Aspirin EC] 81 mg PO DAILY 12/01/22 [History] metFORMIN HCL 1,000 mg PO BID 12/01/22 [History] Follow up Appointment(s)/Referral(s): Nadine Gates DO [Doctor of Osteopathic Medicine] - 2 Weeks Patient Instructions/Handouts: (DC), (GEN) Activity/Diet/Wound Care/Special Instructions: Tub baths or intercourse until 6 weeks postoperatively. Patient is coming MAKE a routine postoperative appointment 2 weeks. Bleeding cautions were reviewed. [id number] ibuprofen as needed for pain. Discharge Disposition: HOME SELF-CARE
== END 2022-12-27 11:00 | disposition home or self-care (01) | DRG 785 ==
LOC: 4FBP 09:55
PROVIDERS: ADMIT Obstetrics & Gynecology Obstetrics; ATTEND Obstetrics & Gynecology Obstetrics
PROC: 10D00Z1 Extraction of Products of Conception, Low, Open Approach (ICD-10-PCS; principal; 2022-12-25 12:00)
PROC: 0UB70ZZ Excision of Bilateral Fallopian Tubes, Open Approach (ICD-10-PCS; principal; 2022-12-25 12:00)
DX: O24.12 Pre-existing type 2 diabetes mellitus, in childbirth (principal); O34.211 Maternal care for low transverse scar from previous cesarean delivery; Z30.2 Encounter for sterilization; E11.65 Type 2 diabetes mellitus with hyperglycemia; K21.9 Gastro-esophageal reflux disease without esophagitis; Z3A.38 38 weeks gestation of pregnancy; Z79.82 Long term (current) use of aspirin; Z37.0 Single live birth; Z83.3 Family history of diabetes mellitus; Z86.32 Personal history of gestational diabetes; Z79.84 Long term (current) use of oral hypoglycemic drugs; Z28.311 Partially vaccinated for COVID-19; Z28.21 Immunization not carried out because of patient refusal; G43.909 Migraine, unspecified, not intractable, without status migrainosus
CPT/HCPCS: 83036; 85025; 86850; 86900; 86901; 88302; 88307